=== PATIENT | male | born 1970 | race Caucasian/White ===

== ENCOUNTER 2021-05-23 12:07 | Emergency (ER) | payer BC ==
[2021-05-23] MEDS ORDERED: Boostrix 0.5 ML (Tdap) VIAL ONE (12:57)
[2021-05-23] MEDS ORDERED: Lidocaine 1% w/Epinephrine 1:100K 20 ML VIAL ONE (12:57)
[2021-05-23] MEDS ORDERED: Bacitracin 1 PK ONE (13:47)
== END 2021-05-23 13:50 | disposition home or self-care (01) ==
LOC: ERS 12:07
DX: S51.812A Laceration without foreign body of left forearm, initial encounter (principal); I10 Essential (primary) hypertension; E11.9 Type 2 diabetes mellitus without complications; F17.210 Nicotine dependence, cigarettes, uncomplicated; Z23 Encounter for immunization; W26.8XXA Contact with other sharp object(s), not elsewhere classified, initial encounter
CPT/HCPCS: 12002; 90471; 90715

== ENCOUNTER 2021-06-06 06:24 | Emergency (ER) | payer BC | END 2021-06-06 06:38 | disposition home or self-care (01) | LOC: ERS 06:24 | DX: S51.812D Laceration without foreign body of left forearm, subsequent encounter (principal); I10 Essential (primary) hypertension; E11.9 Type 2 diabetes mellitus without complications; F17.210 Nicotine dependence, cigarettes, uncomplicated; Z79.899 Other long term (current) drug therapy; X58.XXXD Exposure to other specified factors, subsequent encounter | CPT/HCPCS: 99281 ==

== ENCOUNTER 2024-02-22 10:29 | Outpatient (CLI) | payer BC | END 2024-02-22 10:30 | disposition home or self-care (01) | LOC: BICCT 10:29 | PROVIDERS: ATTEND Orthopaedic Surgery | DX: M17.12 Unilateral primary osteoarthritis, left knee (principal); M25.462 Effusion, left knee; M71.22 Synovial cyst of popliteal space [Baker], left knee ==

== ENCOUNTER 2024-03-04 05:29 | Inpatient (IN) | payer BC ==
[2024-02-28 15:23] VITALS: BMI 31.8
[2024-03-04] MEDS ORDERED: Sodium Chloride 0.9% 100 ML ONE ×3 (06:06→09:31)
[2024-03-04] MEDS ORDERED: Tranexamic Acid 1,000 MG/10 ML VIAL ONE ×2 (06:06→09:31)
[2024-03-04] MEDS ORDERED: Vancomycin (BATCH) 1.5 GM/300 ML BAG ONE (06:06)
[2024-03-04] MEDS ORDERED: EPINEPHrine 1 MG/ML VIAL ONE (06:44)
[2024-03-04] MEDS ORDERED: Bupivacaine PF 0.5% 30 ML VIAL ONE (06:44)
[2024-03-04] MEDS ORDERED: Lidocaine 1% (PF) 30 ML VIAL ONE (06:44)
[2024-03-04] MEDS ORDERED: fentaNYL 50 mcg/mL 1 mL Vial ONE ×3 (06:44→10:50)
[2024-03-04] MEDS ORDERED: Midazolam HCl 2 mg/2 ml Vial ONE (06:44)
[2024-03-04] MEDS ORDERED: Bupivacaine 0.25% HCL 30 ML VIAL ONE (07:05)
[2024-03-04] MEDS ORDERED: CEFAZOLIN 2 GM VIAL ONE (07:05)
[2024-03-04] MEDS ORDERED: PROPOFOL 40 ML ONE (07:13)
[2024-03-04] MEDS ORDERED: fentaNYL PF 100 MCG/2 ML SYRINGE ONE ×2 (07:15→09:47)
[2024-03-04] MEDS ORDERED: Lidocaine 1% PF 5 ML VIAL ONE (07:19)
[2024-03-04] MEDS ORDERED: Dexamethasone 4 mg/ml Vial ONE (07:19)
[2024-03-04] MEDS ORDERED: Ondansetron PF 4 MG/2 ML Vial ONE (07:19)
[2024-03-04] MEDS ORDERED: fentaNYL 50 mcg/mL 1 mL Vial SLOW IVP PRN (07:25)
[2024-03-04] MEDS ORDERED: Ropivacaine 0.2% 550 ML 550 ML NERVE BLCK SCH (07:30)
[2024-03-04] MEDS ORDERED: Zolpidem Tartrate 5 MG TAB PO PRN ×2 (07:30→09:25)
[2024-03-04] MEDS ORDERED: Promethazine HCl 25 MG/ML VIAL IM PRN ×2 (07:30→09:25)
[2024-03-04] MEDS ORDERED: traMADol HCl 50 MG TAB PO PRN (07:30)
[2024-03-04] MEDS ORDERED: Ondansetron PF 4 MG/2 ML Vial IVP PRN ×2 (07:30→09:25)
[2024-03-04] MEDS ORDERED: Magnesium 5 GM/10 ML VIAL ONE (07:37)
[2024-03-04] MEDS ORDERED: PHENYLEPHRINE-NS 100 MCG/ML 10 ML SYRINGE ONE (07:40)
[2024-03-04] MEDS ORDERED: HYDROmorphone 2 MG/ML VIAL ONE (08:52)
[2024-03-04] MEDS ORDERED: Ketorolac Tromethamine 30 MG (1 mL) VIAL ONE (09:09)
[2024-03-04] MEDS ORDERED: Acetaminophen 325 MG TAB PO PRN (09:25)
[2024-03-04] MEDS ORDERED: diphenhydrAMINE 25 MG CAP PO PRN (09:25)
[2024-03-04] MEDS ORDERED: Vancomycin 1.5 GM in Sodium Chloride 0.9% 250 ML 300 ML IVPB SCH (09:30)
[2024-03-04] MEDS: Tranexamic Acid 1,000 MG in Sodium Chloride 0.9% 100 ML IVPB SCH (10:00)
[2024-03-04] MEDS: Ketorolac Tromethamine 30 MG (1 mL) VIAL IVP SCH (10:55)
[2024-03-04] MEDS: Sodium Chloride 0.9% 1,000 ML IV SCH (10:58)
[2024-03-04] MEDS: CEFAZOLIN 2 GM in Sodium Chloride 0.9% 100 ML IVPB SCH (15:19)
[2024-03-04] MEDS: HYDROcodone/Acetaminophen 10/325 mg Tablet PO PRN (15:20)
[2024-03-04] MEDS: metFORMIN 500 MG TAB PO SCH (18:38)
[2024-03-04] MEDS: Vancomycin (BATCH) 1.5 GM in Premix 1 BAG IVPB SCH (18:44)
[2024-03-04] MEDS: Aspirin 81 mg Enteric Coated Tablet PO SCH (19:46)
[2024-03-05] MEDS: HYDROcodone/Acetaminophen 10/325 mg Tablet PO PRN (04:58)
[2024-03-05 05:04] LABS: Hematocrit 38.4 % (42.0-52.0); Hemoglobin 13.2 g/dL (14.0-18.0); Mean Corpuscular HGB CONC 34.4 g/dL (32.0-36.0); Mean Corpuscular Hemoglobin 32.3 pg (27.0-31.0); Mean Corpuscular Volume 93.9 fL (78.0-98.0); Mean Platelet Volume 10.3 fL (7.4-10.4); Platelet Count 144 10x3/uL (130-400); RBC Distribution Width 12.6 % (11.5-14.5); Red Blood Cell (RBC) Count 4.09 mill/uL (4.70-6.10)
[2024-03-05] MEDS: Ferrous Gluconate 324 MG TAB PO SCH (08:30)
[2024-03-05] MEDS: Senokot S 8.6-50 MG TAB PO SCH (08:30)
[2024-03-05] MEDS: Lisinopril 20 MG TAB PO SCH (08:31)
[2024-03-05] MEDS: Multivitamin W/ Minerals 1 TAB PO SCH (08:31)
[2024-03-05] MEDS: Glimepiride 1 MG TAB PO SCH (08:31)
[2024-03-05] MEDS: Atorvastatin Calcium 20 MG TAB PO SCH (08:31)
[2024-03-05] MEDS ORDERED: Iopamidol-370 76% 500 ML MDV (1 ML CHARGE) ONE (11:27)
[2024-03-06 05:23] LABS: Hematocrit 37.3 % (42.0-52.0); Hemoglobin 12.5 g/dL (14.0-18.0); Mean Corpuscular HGB CONC 33.5 g/dL (32.0-36.0); Mean Corpuscular Hemoglobin 32.5 pg (27.0-31.0); Mean Corpuscular Volume 96.9 fL (78.0-98.0); Mean Platelet Volume 10.3 fL (7.4-10.4); Platelet Count 127 10x3/uL (130-400); RBC Distribution Width 12.9 % (11.5-14.5); Red Blood Cell (RBC) Count 3.85 mill/uL (4.70-6.10)
[2024-03-06 08:15] VITALS: BP 131/76; TEMP 98
[2024-03-06] MEDS: traMADol HCl 50 MG TAB PO PRN (10:24)
== END 2024-03-06 12:10 | disposition home or self-care (01) | DRG 470 ==
LOC: SDC 05:29 → SURG B 11:18 → OBSVTOIN 03-05 16:04
PROVIDERS: ADMIT Orthopaedic Surgery; ATTEND Orthopaedic Surgery
PROC: 0SRD0J9 Replacement of Left Knee Joint with Synthetic Substitute, Cemented, Open Approach (ICD-10-PCS; principal; 2024-03-04)
DX: M17.12 Unilateral primary osteoarthritis, left knee (principal); M96.841 Postprocedural hematoma of a musculoskeletal structure following other procedure; I10 Essential (primary) hypertension; E78.5 Hyperlipidemia, unspecified; E11.9 Type 2 diabetes mellitus without complications; K76.0 Fatty (change of) liver, not elsewhere classified; Z87.891 Personal history of nicotine dependence; Y83.8 Other surgical procedures as the cause of abnormal reaction of the patient, or of later complication, without mention of misadventure at the time of the procedure; Z79.899 Other long term (current) drug therapy
CPT/HCPCS: 36415; 85027; A4306; C1713; C1776; C1889; J0171; J0665; J1100; J1170; J1885; J2001; J2250; J2405; J2704; J2795; J3010; J3370; J3475; J3490; J7050; Q9967

== ENCOUNTER 2024-08-27 16:16 | Outpatient (CLI) | payer BC | END 2024-08-27 16:17 | disposition home or self-care (01) | LOC: CT 16:16 | PROVIDERS: ATTEND Orthopaedic Surgery | DX: M17.11 Unilateral primary osteoarthritis, right knee (principal) ==

== ENCOUNTER 2024-08-28 14:34 | Outpatient (CLI) | payer BC ==
[2024-08-28 16:11] LABS: #Basophils 0.05 10x3/uL (0.0-0.2); %Basophils 0.6 % (0.0-1.0); %Eosinophils 1.6 % (0.0-10.0); %Lymphocytes 26.1 % (21.0-51.0); %Monocytes 8.7 % (0.0-10.0); %Neutrophils 62.5 % (42.0-75.0); Hematocrit 50.4 % (42.0-52.0); Hemoglobin 17.7 g/dL (14.0-18.0); Mean Corpuscular HGB CONC 35.1 g/dL (32.0-36.0); Mean Corpuscular Hemoglobin 32.4 pg (27.0-31.0); Mean Corpuscular Volume 92.3 fL (78.0-98.0); Mean Platelet Volume 10.2 fL (7.4-10.4); Platelet Count 156 10x3/uL (130-400); Red Blood Cell (RBC) Count 5.46 mill/uL (4.70-6.10)
[2024-08-28 16:21] LABS: Bilirubin Negative (Negative); Blood, Urine Negative (Negative); Clarity Clear (Clear); Glucose, Urine (Dipstick) Greater than 1000 mg/dL (Negative); Ketone, Urine Negative (Negative); Leukocyte Negative Leu/uL (Negative); Nitrite Negative (Negative); Protein, Urine (Dipstick) Negative (Neg-Trace); Specific Gravity, Urine 1.001 (1.002-1.036); Urobilinogen Normal mg/dL (Less than 2)
[2024-08-28 16:25] LABS: Prothrombin Time 13.2 sec (12.0-14.7)
[2024-08-28 16:30] LABS: Anion Gap 16 mmol/L (10-20); BUN (Urea Nitrogen) 10 mg/dL (8.4-25.7); Calc. Creatinine Clearance 0 mL/min (70-130); Calcium 9.5 mg/dL (7.8-10.44); Carbon Dioxide 20 mmol/L (22-29); Chloride 100 mmol/L (98-107); Estimated GFR 91; Glucose 298 mg/dL (70-105); Potassium 4.1 mmol/L (3.5-5.1); Sodium 132 mmol/L (136-145)
== END 2024-08-28 14:35 | disposition home or self-care (01) ==
LOC: LABBT 14:34
PROVIDERS: ATTEND Orthopaedic Surgery
DX: Z01.818 Encounter for other preprocedural examination (principal); M17.11 Unilateral primary osteoarthritis, right knee
CPT/HCPCS: 71046; 80048; 81003; 85025; 85610; 87081; 93005; 93010